=== PATIENT | female | born 1945 | race Caucasian/White ===

== ENCOUNTER → 2020-09-02 10:13 | Outpatient (BNVA) | payer MEDICARE, OTHER, SELFPAY | PROVIDERS: PCP Internal Medicine; Visit Provider Urology | DX: R33.9 Retention of urine, unspecified (principal) | CPT/HCPCS: Q3014 ==

== ENCOUNTER → 2021-09-06 09:52 | Outpatient (BNVA) | payer MEDICARE, OTHER, SELFPAY | PROVIDERS: PCP Internal Medicine; Visit Provider Urology | DX: R33.9 Retention of urine, unspecified (principal); N39.0 Urinary tract infection, site not specified | CPT/HCPCS: 51798; 99212 ==

== ENCOUNTER → 2022-09-28 11:13 | Outpatient (BNVA) | payer MEDICARE, OTHER, SELFPAY | PROVIDERS: PCP Internal Medicine; Visit Provider Urology | DX: N39.0 Urinary tract infection, site not specified (principal); R33.9 Retention of urine, unspecified | CPT/HCPCS: 51798; 99212 ==

== ENCOUNTER 2023-12-24 13:53 | Outpatient (AMB) | payer MEDICARE, OTHER, SELFPAY ==
--- NOTE | 2023-12-24 14:02 | MHC.OFFVIS ---
Intake Intake Visit Reasons: 1Y PVR/UTI Follow Up(Confirmed) Intake Note: Patient is Present for Follow Up Urology Medication: Estradiol, Tamsulosin Antibiotic Allergies:none Blood Thinners: None PVR:0 Allergies iodine Allergy (Intermediate, Verified 12/24/23 14:03) rash shellfish Allergy (Severe, Uncoded 12/24/23 14:03) Anaphylaxis animals Allergy (Intermediate, Uncoded 12/24/23 14:03) hives dust Allergy (Intermediate, Uncoded 12/24/23 14:03) hives mold Allergy (Intermediate, Uncoded 12/24/23 14:03) rash trees Allergy (Intermediate, Uncoded 12/24/23 14:03) hives HPI HPI Comments History of Present Illness Details Ena is a pleasant female. She is a patient of Dr. Card. She is for the following urologic conditions - recurrent UTI Yearly follow-up Continue good response to combination estradiol and tamsulosin Continue good response from tamsulosin Urinary Tract Infection: They present for followup evaluation - PVR low. Would like to stay on Flomax.. Severity of the symptom(s) that is mild. Gynecologic history: , 2, Para, 2 prolonged. Therapy has included Alpha-foster. Recent labs included 02/15 , a urinalysis, showing no infection, normal. Recent testing included an ultrasound 07/15 - no abnormalities - high PVR 235cc 02/13 , a PVR 8cc 02/14 PVR 0cc 02/15 PVR 0cc. Relevant medical history diabetes No constipation No incomplete bladder emptying Yes renal stones No genitourinary surgery Yes association of infections with intercourse No history of vesicoureteral reflux No Therapeutic plan will include Continued to use of alpha blockers. [facility] Social History Alcohol intake: current Alcohol type: wine Patient Tobacco Use Status: Never used Tobacco Review of Systems Const Denies chills and Denies fever(s) Card Reports no additional complaints and Denies syncope Resp Denies cough GI Denies abdominal pain and Denies heartburn Reports as per HPI and Denies change in libido Neuro Denies syncope Psych Denies change in libido Endo Denies change in libido Physical Exam Const General: cooperative, healthy appearing, comfortable and no acute distress Orientation/consciousness: patient oriented x3 HEENT Face and sinus: Yes normal facial exam Mouth: moist mucous membranes Neck Neck: Yes normal visual inspection, Yes full ROM and Yes trachea midline Chest Chest palpation & inspection: normal inspection of the chest Resp Effort & Inspection: normal respiratory effort, able to speak in complete sentences and no respiratory distress GI Inspection: Yes normal to inspection Back/Spine/Pelvis Cervical Spine: normal cervical lordosis Thoracic/Lumbar Spine: thoracic and lumbar spine normal to inspection Skin General skin exam: no rashes or lesions noted Neuro General: patient oriented x3, gait normal, tone normal and moves all extremities Extrem General: Yes normal to inspection and Yes capillary refill normal Office Procedures Post Void Residual Post Residual Void Post Void Residual (PVR): 0 [id number] Void Residual by ultrasound Results AMB Urinalysis, Automated UA Leukoctes 0 Aida/uL Last Edit by Dominique Robles [facility] on 12/24/23 14:15 UA Nitrite Negative Last Edit by Dominique Robles [facility] on 12/24/23 14:15 UA Urobilinogen 0.2 mg/dL Last Edit by Dominique Robles [facility] on 12/24/23 14:15 UA Protein 0 mg/dL Last Edit by Dominique Robles [facility] on 12/24/23 14:15 UA pH 6.5 Last Edit by Dominique Robles [facility] on 12/24/23 14:15 UA Blood 0 Hussein/uL Last Edit by Dominique Robles [facility] on 12/24/23 14:15 UA Specific Hoven 1.010 Last Edit by Dominique Robles [facility] on 12/24/23 14:15 UA Ketone Negative Last Edit by Dominique Robles [facility] on 12/24/23 14:15 UA Bilirubin 0 mg/dL Last Edit by Dominique Robles [facility] on 12/24/23 14:15 UA Glucose 0 mg/dL Last Edit by Dominique Robles [facility] on 12/24/23 14:15 Results Reviewed Results Reviewed: Laboratory Last Values Urine pH (Auto) 6.5 12/24/23 14:04 Specific Hoven (Auto) 1.010 12/24/23 14:04 Urine Protein (Auto) 0 mg/dL 12/24/23 14:04 Glucose (UA)(Auto) 0 mg/dL 12/24/23 14:04 Urine Ketones (Auto) Negative 12/24/23 14:04 Urine Blood (Auto) 0 Hussein/uL 12/24/23 14:04 Urine Nitrite (Auto) Negative 12/24/23 14:04 Urine Bilirubin (Auto) 0 mg/dL 12/24/23 14:04 Urine Urobilinogen (Auto) 0.2 mg/dL 12/24/23 14:04 Leukocyte Esterase (Auto) 0 Aida/uL 12/24/23 14:04 Assessment & Plan Assessment & Plan (1) Recurrent UTI: Code(s): N39.0 - Urinary tract infection, site not specified (2) Urinary retention with incomplete bladder emptying: Code(s): R33.9 - Retention of urine, unspecified Plan Twelve month follow-up Orders: Orders AMB Post Void Residual by ultrasound 12/24/23 R33.9 - Retention of urine, unspecified AMB Urinalysis Automated 12/24/23 Z13.9 - Encounter for screening, unspecified Patient Instructions: Imaging studies, laboratory and physical exam results were discussed and reviewed in detail. No major barriers to patient understanding were identified. An opportunity to ask questions regarding the treatment plan was provided. All questions were answered. The patient expressed understanding and agreement with the above treatment plan. The patient is aware they should contact our office by phone for worsening of their current condition or the appearance of new urologic symptoms. Compliance is encouraged with any medications and followup testing that is ordered. It is a privilege to participate in the urologic care of your patient. If you have any questions or concerns regarding treatment for the above conditions, or other urologic issues, please do not hesitate to contact me. The office telephone contact is [phone]. This note is constructed using voice recognition software. While every effort has been made to ensure accuracy news production supervisor errors may have been included. Yours sincerely, Dr Srikanth Oakes MD, [facility] - Urology Providers of Expert, Compassionate Care for the Genitourinary System Coding Level of Care Code Est Pt Level 4 (95613) Diagnoses Recurrent UTI N39.0 Urinary retention with incomplete bladder emptying R33.9 CPT Codes Post Residual Void - PVR CPT Code: 82646-Wgkd Void Residual by ultrasound ([id number])
== END 2023-12-24 14:56 | disposition home or self-care (01) ==
PROVIDERS: Visit Provider Urology
DX: N39.0 Urinary tract infection, site not specified (principal); R33.9 Retention of urine, unspecified
CPT/HCPCS: 99213

== ENCOUNTER → 2023-12-24 13:53 | Outpatient (BNVA) | payer MEDICARE, OTHER, SELFPAY | PROVIDERS: Visit Provider Urology | DX: N39.0 Urinary tract infection, site not specified (principal); R33.9 Retention of urine, unspecified; Z79.899 Other long term (current) drug therapy | CPT/HCPCS: 51798; 81003; 99212 ==

== ENCOUNTER 2024-05-14 10:50 | Outpatient (REF) | payer MEDICARE, OTHER, SELFPAY ==
[2024-05-14 11:58] LABS: Appearance Urine Clear; Color Urine Yellow; Glucose Urine UA Negative (Negative); Leukocyte Esterase Urine Trace (Negative); Nitrite Urine Negative (Negative); PH 7.5 (5.0-9.0); UMIC TRIGGER UA YES; Urine Blood Negative (Negative); Urine Ketones Negative (Negative); Urine Protein Negative (Neg-Trace)
[2024-05-14 12:01] LABS: Bacteria Urine None Seen (None Seen); Hyaline Casts Urine 0-2 /LPF (0-2); RBC Urine 0-2 /HPF (0-2); WBC Urine 0-5 /HPF (0-5)
== END 2024-05-14 10:51 | disposition home or self-care (01) ==
LOC: HO.LAB 10:50
PROVIDERS: PCP Internal Medicine; Visit Provider Urology
DX: N39.0 Urinary tract infection, site not specified (principal); R33.9 Retention of urine, unspecified
CPT/HCPCS: 81001; 87086

== ENCOUNTER 2024-12-22 14:00 | Outpatient (AMB) | payer MEDICARE, OTHER, SELFPAY ==
--- NOTE | 2024-12-22 14:08 | MHC.OFFVIS ---
Intake Visit Reasons: 1 year f/u Intake Note: Patient is Present for 1Y Follow Up Urology Medication: Estradiol, Tamsulosin Antibiotic Allergies:none Blood Thinners: None PVR:0ML'S TODAY'S PVR: 0ML'S Bottom Scrubber Required: No Allergies iodine Allergy (Intermediate, Verified 12/22/24 14:09) rash shellfish Allergy (Severe, Uncoded 12/22/24 14:09) Anaphylaxis animals Allergy (Intermediate, Uncoded 12/22/24 14:09) hives dust Allergy (Intermediate, Uncoded 12/22/24 14:09) hives mold Allergy (Intermediate, Uncoded 12/22/24 14:09) rash trees Allergy (Intermediate, Uncoded 12/22/24 14:09) hives HPI Comments Details: Ena is a pleasant female. She is a patient of Dr. Card. She is for the following urologic conditions - recurrent UTI Yearly follow-up Remains on estradiol versus Estrace ring No longer on tamsulosin PVR stable Twelve month follow-up Urinary Tract Infection: They present for followup evaluation - PVR low Severity of the symptom(s) that is mild. Gynecologic history: , 2, Para, 2 prolonged. Therapy has included Alpha-foster. Recent labs included 02/15 , a urinalysis, showing no infection, normal. Recent testing included an ultrasound 07/15 - no abnormalities - high PVR 235cc 02/13 , a PVR 8cc 02/14 PVR 0cc 02/15 PVR 0cc. Relevant medical history diabetes No constipation No incomplete bladder emptying Yes renal stones No genitourinary surgery Yes association of infections with intercourse No history of vesicoureteral reflux No Therapeutic plan will include Continued to use of alpha blockers. [facility] Social History Alcohol intake: current Alcohol type: wine Patient Tobacco Use Status: Never used Tobacco Review of Systems Const Denies chills and Denies fever(s) Card Reports no additional complaints and Denies syncope Resp Denies cough GI Denies abdominal pain and Denies heartburn Reports as per HPI and Denies change in libido Neuro Denies syncope Psych Denies change in libido Endo Denies change in libido Physical Exam Const General: cooperative, healthy appearing, comfortable and no acute distress Orientation/consciousness: patient oriented x3 HEENT Face and sinus: Yes normal facial exam Mouth: moist mucous membranes Neck Neck: Yes normal visual inspection, Yes full ROM and Yes trachea midline Chest Chest palpation & inspection: normal inspection of the chest Resp Effort & Inspection: normal respiratory effort, able to speak in complete sentences and no respiratory distress GI Inspection: Yes normal to inspection Back/Spine/Pelvis Cervical Spine: normal cervical lordosis Thoracic/Lumbar Spine: thoracic and lumbar spine normal to inspection Skin General skin exam: no rashes or lesions noted Neuro General: patient oriented x3, gait normal, tone normal and moves all extremities Extrem General: Yes normal to inspection and Yes capillary refill normal Office Procedures Post Void Residual Post Residual Void Post Void Residual (PVR): 0 [id number] Void Residual by ultrasound Results AMB Urinalysis, Automated UA Leukoctes 0 Aida/uL Last Edit by DESTINEY Vick on 12/22/24 14:24 UA Nitrite Negative Last Edit by DESTINEY Vick on 12/22/24 14:24 UA Urobilinogen 3.5 mg/dL Last Edit by DESTINEY Vick on 12/22/24 14:24 UA Protein 0 mg/dL Last Edit by DESTINEY Vick on 12/22/24 14:24 UA pH 6.5 Last Edit by DESTINEY Vick on 12/22/24 14:24 UA Blood 0 Hussein/uL Last Edit by DESTINEY Vick on 12/22/24 14:24 UA Specific Sandy 1.010 Last Edit by DESTINEY Vick on 12/22/24 14:24 UA Ketone Negative Last Edit by DESTINEY Vick on 12/22/24 14:24 UA Bilirubin 0 mg/dL Last Edit by DESTINEY Vick on 12/22/24 14:24 UA Glucose 0 mg/dL Last Edit by Booker Morales CCM on 12/22/24 14:24 Results Reviewed Results Reviewed: Laboratory Last Values Urine pH (Auto) 6.5 12/22/24 14:23 Specific Sandy (Auto) 1.010 12/22/24 14:23 Urine Protein (Auto) 0 mg/dL 12/22/24 14:23 Glucose (UA)(Auto) 0 mg/dL 12/22/24 14:23 Urine Ketones (Auto) Negative 12/22/24 14:23 Urine Blood (Auto) 0 Hussein/uL 12/22/24 14:23 Urine Nitrite (Auto) Negative 12/22/24 14:23 Urine Bilirubin (Auto) 0 mg/dL 12/22/24 14:23 Urine Urobilinogen (Auto) 3.5 mg/dL 12/22/24 14:23 Leukocyte Esterase (Auto) 0 Aida/uL 12/22/24 14:23 Assessment & Plan Assessment & Plan (1) Urinary retention with incomplete bladder emptying: Code(s): R33.9 - Retention of urine, unspecified Category: Medical (2) Recurrent UTI: Code(s): N39.0 - Urinary tract infection, site not specified Category: Medical Plan One year follow-up Orders: Orders AMB Urinalysis Automated Today Z13.9 - Encounter for screening, unspecified Patient Instructions: This note is constructed using voice recognition software. While every effort has been made to ensure accuracy database admin errors may have been included. Imaging studies, laboratory and physical exam results were discussed and reviewed in detail. No major barriers to patient understanding were identified. An opportunity to ask questions regarding the treatment plan was provided. All questions were answered. The patient expressed understanding and agreement with the above treatment plan. The patient is aware they should contact our office by phone for worsening of their current condition or the appearance of new urologic symptoms. Compliance is encouraged with any medications and followup testing that is ordered. It is a privilege to participate in the urologic care of your patient. If you have any questions or concerns regarding treatment for the above conditions, or other urologic issues, please do not hesitate to contact me. The office telephone contact is [phone]. Sincerely, Dr Srikanth Oakes MD, [facility] - Urology Compassionate Specialist Care for the Genitourinary System Coding Level of Care Code Est Pt Level 4 (34459) Complex EM visit Add On G2211 Diagnoses Urinary retention with incomplete bladder emptying R33.9 Recurrent UTI N39.0 CPT Codes Post Residual Void - PVR CPT Code: 45221-Rkto Void Residual by ultrasound ([id number])
--- OUTSIDE RECORDS SUMMARY | 2024-12-22 17:28 | XMS_ITS | Patient Health Record ---
Author Organization [facility] Address [address] [place] [address] Care Team Providers Care Floor Associate Name Role Phone JENNIFER BUSTOS Primary Care Provider Mita Banuelos [phone] Allergies Allergen (clinical drug ingredient) Drug/Non Drug Allergy documented on EMR Reaction Allergy Type Onset Date Status Shellfish (FN) Shellfish-derived Products Unknown Drug Allergy Active Results Component Value Reference Range Notes Urinalysis Reviewed date:08/14/2024 11:52:03 AM Interpretation: Performing Lab: Notes/Report: NITRITE NEG PH 5.0 PROTEIN TR S.G 1.020 WBC POS GLUCOSE NEG KETONES NEG UROBILINOGEN NEG BILIRUBIN NEG BLOOD NEG Urinalysis, Complete-[id number] Reviewed date:08/17/2024 08:03:08 AM Interpretation: Performing Lab:[facility], [address] [place] [address], Phone - [phone], Director - Ramila Notes/Report: Clinical Information:SRC: URINE Clinical Information:SRC: URINE Specific [place] 1.015 1.005-1.030 pH 6.5 5.0-7.5 Urine-Color Yellow Yellow Appearance Clear Clear WBC Esterase Negative Negative Protein Negative Negative/Trace Glucose Negative Negative Ketones Negative Negative Occult Blood Negative Negative Bilirubin Negative Negative Urobilinogen,Semi-Qn 0.2 0.2-1.0 mg/dL Nitrite, Urine Negative Negative Microscopic Examination Micr oscopic follows if indicated. Microscopic Examination See below: Micr oscopic was indicated and was performed. WBC 0-5 0 - 5 /hpf RBC None seen 0 - 2 /hpf Epithelial Cells (non renal) >10 0 - 10 /hpf Casts None seen None seen /lpf Crystals Present N/A Crystal Type Calcium Oxalate N/A Bacteria None seen None seen/Few Urine Culture, Routine-[id number] Reviewed date:08/17/2024 08:03:02 AM Interpretation: Performing Lab:[facility], [address], [place], Phone - [phone], Director - Ramila Notes/Report: Clinical Information:SRC: URINE Clinical Information:SRC: URINE Urine Culture, Routine Final report Result 1 Mixed urogenital jennifer 10,000-25,000 colony forming units per mL PDF Report Reviewed date:08/17/2024 07:56:16 AM Interpretation: Performing Lab:[facility] [place], [address] [facility], [place], Phone - [phone], Director - Ramila Notes/Report: Clinical Information:SRC: URINE Reason For Referral No Information Medications Medication SIG (Take, Route, Frequency, Duration) Notes Start Date End Date Status Terconazole 3 0.8 % 1 applicatorful at bedtime Vaginal Once a day for 3 day(s) 08/01/2020 Not-Taking Terazol 3 0.8 % 1 application at bed time Vaginal Once a day for 3 day(s) 10/04/2020 Not-Taking Terazol 7 0.4 % 1 applicatorful at bedtime Vaginal Once a night x 7 nights for 7 day(s) 07/26/2020 Not-Taking MetroGel-Vaginal 0.75 % 1 application at bedtime Vaginal ONCE A NIGHT for 5 day(s) 10/09/2022 Not-Taking MetroGel-Vaginal 0.75 % 1 application at bedtime Vaginal Once a day for 5 day(s) 10/04/2020 Not-Taking Yuvafem 10 MCG INSERT 1 TABLET VAGINALLY THREE X A WEEK for 90 Active Estradiol Vaginal Cream 0.01% 1 Gram to the affected area VULVA Twice a week for 90 days 08/14/2024 Active Flomax Active Lidocaine 5 % 1 application to affected area as needed Externally Three times a day as needed for 10 days 11/11/2014 Not-Taking Multi Paco Minerals - as directed Orally Active metroNIDAZOLE 0.75 % 1 applicatorful at bedtime Vaginal ONCE A NIGHT for 5 days 12/03/2024 Active Multivitamins 1 ORAL daily for -3 04/16/2012 Active Valtrex 1 GM 1 tablet Orally TWIC E DAILY for 10 day(s) 11/11/2014 Not-Taking Vitamin D 1000 UNIT 1 tablet Orally Once a day Active Lotrisone 1-0.05 % 1 application to affected area Externally Twice a day for 14 days 11/05/2014 Not-Jonah velasquez Yuvafem 10 MCG 1 tablet Vaginal THR ICE A WEEK for 90 days 12/03/2024 Active Bioflavonoids ORAL daily for -3 04/23/2013 Active Social History Tobacco Use: Social History Observation Description Date Details (start date - stop date) Former Smoker NA - NA Sexual History Question Answer Notes Had sex in the past 12 months (vaginal, oral, or anal)? No AUDIT-C (Standard) Question Answer Notes Did you have a drink containing alcohol in the p ast year? No Points 0 Interpretation Negative Tobacco Control (Standard) Question Answer Notes Tobacco use: Former smoker How long has it been since you last smoked? 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 (406506763) Prolapse of vaginal perry without mention of uterine prolapse (618.0) Active confirmed Problem Midline cystocele (550442369) Cystocele without mention of uterine prolapse, midline (618.01) Active confirmed Problem Herniation of rectum into vagina (147117271) Rectocele without mention of uterine prolapse (618.04) Active confirmed Problem Menopausal symptom (13553346) Symptomatic menopausal or female climacteric states (627.2) Active confirmed Problem Postmenopausal atrophic vaginitis (93886219) Postmenopausal atrophic vaginitis (627.3) Active confirmed Problem Disorder of bone and articular cartilage (disorder) (946111336) Disorder of bone and cartilage, unspecified (733.90) Active confirmed Problem Postmenopausal atrophic vaginitis (58886215) Postmenopausal atrophic vaginitis (N95.2) Active confirmed Problem Constipation by outlet obstruction (64871481) 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) Active confirmed Problem 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) (0644728753241323 0) Other benign mammary dysplasias of left breast (N60.82) Active confirmed Problem Benign mammary dysplasia (28412036) Other benign mammary dysplasias of unspecified breast (N60.89) Active confirmed Problem Atrophy of vulva (536214121) Atrophy of vulva (N90.5) Active confirmed Problem Abnormal findings on diagnostic imaging of breast (292186244) Other abnormal and inconclusive findings on diagnostic imaging of breast (R92.8) Active confirmed Problem History of neoplasm (390166775) Personal history of other benign neoplasm (Z86.018) Active confirmed Problem Gynecological examination normal (557274303462062) Routine gynecological examination (V72.31) Active confirmed Problem Screening for malignant neoplasm of colon (695378882) Special screening for malignant neoplasms, colon (V76.51) Active confirmed Major Vital Signs Temperature 2 degrees Fahrenheit 12/03/2024 Blood pressure diastolic 68 mm Hg 12/03/2024 Height 61.5 in 12/03/2024 Blood pressure systolic 114 mm Hg 12/03/2024 Weight 134 lbs 12/03/2024 BMI 24.91 kg/m2 12/03/2024 Encounters Encounter Location Date [facility] [address] [address] 08/14/2024 Mita Cote Frequency of micturition R35.0 and Atrophy of vulva N90.5 [address] [address] [address] 12/03/2024 Mita Cote Encounter for gynecological examination (general) (routine) without abnormal findings Z01.419 ; Encounter for screening mammogram for malignant neoplasm of breast Z12.31 ; Other specified disorders of bone density and structure, multiple sites M85.89 ; Outlet dysfunction constipation K59.02 ; Postmenopausal atrophic vaginitis N95.2 ; Acute vaginitis N76.0 ; Other benign mammary dysplasias of unspecified breast N60.89 and Dense breasts, unspecified R92.30 [address] [address] [address] 08/13/2024 Mita Cote [address] [address] 12/17/2024 Mita Cote Assessments Encounter Date Diagnosis (ICD Code) Assessment Notes Treatment Notes Treatment Clinical Notes Section Notes 08/14/2024 Frequency of micturition (ICD-10 - R35.0) OFFICIAL UA AND URINE C/S WERE ORDERED. 12/03/2024 Encounter for gynecological examination (general) (routine) without abnormal findings (ICD-10 - Z01.419) NO MORE PAP TESTS. 12/03/2024 Encounter for screening mammogram for malignant neoplasm of breast (ICD-10 - Z12.31) REGULAR MAMMOGRAMS AND SBE'S WERE RECOMMENDED. 08/14/2024 Atrophy of vulva (ICD-10 - N90.5) DISCUSSED FINDINGS AND DESQUAMATION NOTED. SHE HAS BURNING SENSATION ALONG THIS AREA WHEN URINE PASSES DUE TO ACIDITY OF URINE. APPLY VASELINE ALONG THIS AREA TO PROTECT IT. CONTINUE EMUAID. IF NOT BETTER, APPLY ESTRADIOL CREAM ALONG THE VULVA TWICE WEEKLY. 12/03/2024 Other specified disorders of bone density and structure, multiple sites (ICD-10 - M85.89) DISCUSSED HER LAST BMD AND OSTEOPENIA AND ITS IMPACT ON HER HEALTH. ADEQUATE CALCIUM AND VIT D. WEIGHT BEARING EXERCISES. REPEAT BMD IN 2025. 12/03/2024 Outlet dysfunction constipation (ICD-10 - K59.02) DISCUSSED DISCONTINUING MAGNESIUM FOLLOWED BY INABILITY TO EMPTY BOWELS WELL. RESTART MAGNESIUM SUPPLEMENTS. IF SHE CONTINUES TO HAVE THIS ISSUE, CALL BACK AND WILL REFER TO COLORECTAL SURGEONS FOR FURTHER EVALUATION. 12/03/2024 Postmenopausal atrophic vaginitis (ICD-10 - N95.2) CONTINUE YUVAFEM THRICE A WEEK. 12/03/2024 Acute vaginitis (ICD-10 - N76.0) DISCUSSED FINDINGS, DX AND TX OPTIONS. DISCUSSED BV RX FOR METROGEL AND INSTRUCTIONS WERE GIVEN. RECURRENT NATURE OF THE CONDITION WAS EMPHASIZED. 12/03/2024 Other benign mammary dysplasias of unspecified breast (ICD-10 - N60.89) DISCUSSED HS OF ADH AND ITS IMPLICATIONS. 12/03/2024 Dense breasts, unspecified (ICD-10 - R92.30) DISCUSSED DENSE BREASTS ON MAMMOGRAM AND ITS IMPLICATIONS. 3D MAMMOGRAMS WERE RECOMMENDED. Plan Of Treatment Pending Test Test Name Order Date HSV 10/01 PCR 11/11/2014 MAMMOGRAM, SCREENING 10/05/2021 MAMMOGRAM, SCREENING 10/09/2022 MAMMOGRAM, SCREENING 12/03/2023 MAMMOGRAM, SCREENING 12/03/2024 MAMMOGRAM, SCREENING 06/14/2015 Urine Culture and Sensitivity 11/05/2014 Urinalysis 09/11/2018 COMPLETE URINALYSIS 02/14/2023 URINE CULTURE 02/14/2023 BONE DENSITY 10/09/2022 BONE DENSITY 12/03/2024 BONE DENSITY 10/04/2020 MM Digital Mammo Screening 10/05/2021 MM Digital Mammo Screening 12/03/2023 MM Digital Mammo Screening 10/09/2022 MM Digital Mammo Screening 12/03/2024 Next Appt Details Provider Name:Mita quintero, 12/29/2024 10:50:00 AM, [address], [address], [place], [address], Provider Name:Mita quintero, 12/09/2025 10:00:00 AM, [address], [address], [place], [address], Insurance Providers Payer Name Payer Address Payer Phone Subscriber Number Group Number Insured Name Patient Relationship to Insured Coverage Start Date Coverage End Date MEDICARE [address] [facility] [place] [id number] [phone] [id number] SONYA MAYERS Self - patient is the insured [facility] [address] [place] [address] [id number] SONYA MAYERS Self - patient is the insured Medical (General) History Medical History History ICD Code Postmenopausal atrophic vaginitis N95.2 Other benign mammary dysplasias of left breast N60.82 Disorder of bone density and structure, unspecified M85.9 Menopausal and female climacteric states N95.1 Rectocele N81.6 Cystocele, unspecified N81.10 Prolapse of vaginal perry without mentio n of uterine prolapse 618.0 Hormone replacement therapy Z79.890 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 Atrophy of vulva N90.5 Other benign mammary dysplasias of left breast N60.82 Other abnormal and inconclusive findings on diagnostic imaging of breast R92.8 Personal history of other benign neoplas m Z86.018 Nocturia R35.1 Inconclusive mammogram R92.2 Mammographic heterogeneous density, bila teral breasts R92.333 Dense breasts, unspecified R92.30 Other specified disorders of bone densit y and structure, multiple sites M85.89 Surgical History Surgery Date(Month/Year) Tonsillectomy Appendectomy Hysterectomy Ltl Lumpectomy Bladder Suspension Procedure Colonoscopy Bilateral Tubal Ligation Right Breast Biopsy 09/16/19 Left Breast Biopsy 08/14/17 Hospitalization History Reason Date(Month/Year) See Surgical Hx 2 Vaginal Deliveries
--- OUTSIDE RECORDS SUMMARY | 2024-12-22 17:28 | XMS_ITS ---
Author Organization [facility] Address [address] [place] [address] Care Team Providers Care Patient Access Coordinator Name Role Phone JENNIFER BUSTOS Primary Care Provider Mita Banuelos Unavailable [phone] REASON FOR VISIT DOESN'T THINK SHE GOT A BREAST EXAM AT HER PE Encounters Encounter Location Date Provider Diagnosis [facility] [address] [place] [address] 12/17/2024 Mita Cote Plan Of Treatment Next Appt Details Provider Name:Mita quintero, 12/29/2024 10:50:00 AM, [address], [address], [place], [address], Provider Name:Mita quintero, 12/09/2025 10:00:00 AM, [address], [address], [place], [address], Progress Notes * SONYA MAYERS RDOB: (79 yo F)Acc No.[id number]:12/17/2024 Patient:?SONYA MAYERS :1945???Age:79 Y???Sex:Female Address:[address] [place] [address], [id number] * true * Date:? Generated for Printi ng/Faxing/eTransmitting on:?12/22/2024 05:28 PM EDT
--- OUTSIDE RECORDS SUMMARY | 2024-12-22 17:28 | XMS_ITS | Clinical Summary ---
Author Organization [facility] Address [address] [place] [address] Phone Care Team Providers Care Chemical Blender Name Role Phone Amado Card MD Primary Care Provider [phone] Social History Tobacco Use Types Packs/Day Years Used Date Smoking Tobacco: Never Assessed Comments Unknown Sex and Gender Information Value Date Recorded Sex Assigned at Not on file Legal Sex Female 8:20 PM EST Gender Identity Not on file Sexual Orientation Not on file Plan of Treatment Upcoming Encounters Date Type Department Care Team (Late st Contact Info) Description 02/02/2025 3:10 PM EDT Consult Gastroenterology - [address] [phone] Bari Champion MD [address] [place] [phone] Health Maintenance Due Date Last Done Comments DTaP,Tdap,and Td Vaccines (1 - Tdap) 1966 Pneumococcal Vaccine: 50+ Ye ars (1 of 1 - PCV) 1997 Zoster Vaccines (1 of 2) 1997 RSV Immunization Patients 60 + Years Old (1 - 1-dose 75+ series) 2022 Depression Screening 10/24/2023 Falls Risk Assessment 10/24/2023 Hepatitis C Screening 10/24/2023 Medicare Annual Wellness Visit 10/24/2023 Osteoporosis Screening (Bone Density Screening) 10/24/2023 Social Influencers of Health Screening 10/24/2023 COVID-19 Vaccine ( - 2023-2 5 season) 2024 Influenza Vaccine (#1) 2024 HIB Vaccines Aged Out No longer eligi ble based on patient's age to complete this topic HPV Vaccines Aged Out No longer eligi ble based on patient's age to complete this topic Hepatitis A Vaccines Aged Out No long er eligible based on patient's age to complete this topic Hepatitis B Vaccines Aged Out No long er eligible based on patient's age to complete this topic IPV Vaccines Aged Out No longer eligi ble based on patient's age to complete this topic MMR Vaccines Aged Out No longer eligi ble based on patient's age to complete this topic Meningococcal ACWY Vaccine Aged Out N o longer eligible based on patient's age to complete this topic Meningococcal B Vacine Aged Out No lo nger eligible based on patient's age to complete this topic RSV Immunization Patients Un dale 20 months Aged Out No longer eligible b ased on patient's age to complete this topic Varicella Vaccines Aged Out No longer eligible based on patient's age to complete this topic Insurance MEDICARE Care Teams Chemical Blender Relationship Specialty Start Date End Date Amado Card MD [address] [place] [address] PCP - General Internal Medicine 12/14/24
--- OUTSIDE RECORDS SUMMARY | 2024-12-22 17:29 | XMS_ITS ---
Author Organization [employer] [facility] Address [address] [place] [address] Care Team Providers Care Vulcanizer Name Role Phone JENNIFER BUSTOS Primary Care Provider Mita Banuelos [phone] Allergies Allergen (clinical drug ingredient) Drug/Non Drug Allergy documented on EMR Reaction Allergy Type Onset Date Status Shellfish (FN) Shellfish-derived Products Unknown Drug Allergy Active Results Component Value Reference Range Notes Urinalysis Reviewed date:08/14/2024 11:52:03 AM Interpretation: Performing Lab: Notes/Report: NITRITE NEG PH 5.0 PROTEIN TR S.G 1.020 WBC POS GLUCOSE NEG KETONES NEG UROBILINOGEN NEG BILIRUBIN NEG BLOOD NEG Urinalysis, Complete-[id number] Reviewed date:08/17/2024 08:03:08 AM Interpretation: Performing Lab:[facility], [address] [place] [address], Phone - [phone], Director - Ramila Notes/Report: Clinical Information:SRC: URINE Clinical Information:SRC: URINE Specific Walker 1.015 1.005-1.030 pH 6.5 5.0-7.5 Urine-Color Yellow [...] Bacteria None seen None seen/Few Urine Culture, Routine-[id number] Reviewed date:08/17/2024 08:03:02 AM Interpretation: Performing Lab:[facility] [place], [address], [place], Phone - [phone], Director - Ramila Notes/Report: Clinical Information:SRC: URINE Clinical Information:SRC: URINE Urine Culture, Routine Final report Result 1 Mixed urogenital jennifer 10,000-25,000 colony forming units per mL PDF Report Reviewed date:08/17/2024 07:56:16 AM Interpretation: Performing Lab:[facility], [address], [place], Phone - [phone], Director - Ramila Notes/Report: Clinical Information:SRC: URINE REASON FOR VISIT FREQUENCY AND VAGINAL DISCOMFORT Medications Medication SIG (Take, Route, Frequency, Duration) Notes Start Date End Date Status Flomax Active Estradiol Vaginal Cream 0.01% 1 Gram to the affected area VULVA Twice a week for 90 days 08/14/2024 Active Bioflavonoids ORAL daily for -3 04/23/2013 Active Vitamin D 1000 UNIT 1 tablet Orally Once a day Active Multivitamins 1 ORAL daily for -3 04/16/2012 Active Terazol 7 0.4 % 1 applicatorful at bedtime Vaginal Once a night x 7 nights for 7 day(s) 07/26/2020 Not-Taking Lidocaine 5 % 1 application to affected area as needed Externally Three times a day as needed for 10 days 11/11/2014 Not-Taking Valtrex 1 GM 1 tablet Orally TWIC E DAILY for 10 day(s) 11/11/2014 Not-Taking Terconazole 3 0.8 % 1 applicatorful at bedtime Vaginal Once a day for 3 day(s) 08/01/2020 Not-Taking Lotrisone 1-0.05 % 1 application to affected area Externally Twice a day for 14 days 11/05/2014 Not-Taki ng MetroGel-Vaginal 0.75 % 1 application at bedtime Vaginal Once a day for 5 day(s) 10/04/2020 Not-Taking MetroGel-Vaginal 0.75 % 1 application at bedtime Vaginal ONCE A NIGHT for 5 day(s) 10/09/2022 Not-Taking Terazol 3 0.8 % 1 application at bed time Vaginal Once a day for 3 day(s) 10/04/2020 Not-Taking Yuvafem 10 MCG INSERT 1 TABLET VAGINALLY THREE X A WEEK for 90 Active Multi Paco Minerals - as directed Orally Active Social History Tobacco Use: Social History Observation Description Date Details (start date - stop date) Former Smoker NA - NA Sexual History Question Answer Notes Had sex in the past 12 months (vaginal, oral, or anal)? No Tobacco Control (Standard) Question Answer Notes Tobacco use: Former smoker How long has it been since you last smoked? Pedro ter than 10 years Vital Signs Height 61.5 in 08/14/2024 Weight 140 lbs 08/14/2024 BMI 26.02 kg/m2 08/14/2024 Blood pressure systolic 120 mm Hg 08/14/20 Blood pressure diastolic 74 mm Hg 024 Temperature 98.0 degrees Fahrenheit 08/14/20 24 Encounters Encounter Location Date Provider Diagnosis [address] [address] 08/14/2024 Mita Cote Frequency of micturition R35.0 and Atrophy of vulva N90.5 Assessments Encounter Date Diagnosis (ICD Code) Assessment Notes Treatment Notes Treatment Clinical Notes Section Notes 08/14/2024 Frequency of micturition (ICD-10 - R35.0) OFFICIAL UA AND URINE C/S WERE ORDERED. 08/14/2024 Atrophy of vulva (ICD-10 - N90.5) DISCUSSED FINDINGS AND DESQUAMATION NOTED. SHE HAS BURNING SENSATION ALONG THIS AREA WHEN URINE PASSES DUE TO ACIDITY OF URINE. APPLY VASELINE ALONG THIS AREA TO PROTECT IT. CONTINUE EMUAID. IF NOT BETTER, APPLY ESTRADIOL CREAM ALONG THE VULVA TWICE WEEKLY. Plan Of Treatment Medication Medication Name Sig Start Date Stop Date Notes Estradiol Vaginal Cream 0.01% 1 Gram to the affected area VULVA Twice a week for 90 days 08/14/2024 Treatment Notes Assessment Notes Frequency of micturition OFFICIAL UA AND URINE C/S WERE ORDERED. Atrophy of vulva DISCUSSED FINDINGS AND DESQUAMATION NOTED. SHE HAS BURNING SENSATION ALONG THIS AREA WHEN URINE PASSES DUE TO ACIDITY OF URINE. APPLY VASELINE ALONG THIS AREA TO PROTECT IT. CONTINUE EMUAID. IF NOT BETTER, APPLY ESTRADIOL CREAM ALONG THE VULVA TWICE WEEKLY. Next Appt Details Follow Up: prn, Reason: Provider Name:Mita quintero, 12/29/2024 10:50:00 AM, [address], [address], [place], [address], Provider Name:Mita quintero, 12/09/2025 10:00:00 AM, [address], [address], [place], [address], Progress Notes * SONAY MAYERS RDOB: [birth year] (79 yo F)Acc No.[id number]:08/14/2024 PROGRESS NOTES Patient:?SONYA MAYERS Appointment Provider:?Mita quintero M.D. :1945???Age:79 Y???Sex:Female D ate:08/14/2024 Address:[address] [place], [place] [id number] Pcp:JENNIFER BUSTOS Subjective: * Chief Complaints: * ???FREQUENCY AND VAGINAL DIS COMFORT * HPI: ???New/Follow-up Patient Consult:? SONYA C/O BURNING SENSATION ALONG THE VULVA WHEN SHE URINATES AND URINE PASSES THROUGH VULVA.? SHE HAS ALSO NOTED URGENCY NO DYSURIA..? SHE HAS BEEN USING EMUAID ALONG THE VULVA.? SHE USES YUVAFEM THRICE WEEKLY AND VAGINA IS NOT ATROPHIC. S/P TAHBSO FOR BLEEDING FIBROIDS IN .? SHE IS NOT SEXUALLY ACTIVE.? SHE IS A . * ROS:?general:?no?chest pain.?no?palpitations.?no?headache.?no?cough.?no?shortness of breath.?no?fever.?no?unexplained weight loss.?no?nausea/vomiting.?no?change in bowel movements.?no blood in stool.?no?genitourinary complaints.?no?skin complaints.? * Medical History:? * Director Executive Communications History:?/ Para?2/2.?Sexual activity?not currently sexually active.?Last Pap Smear:?04/23/13.?Mammogram:?10/07/23 50-75% density, 10/04/22 50-75% density, 11/30/20 50-75% density, 04/12/20 Unilat Right, 08/20/19 50-75% density, 08/07/18 normal < 50% density, , 01/29/18 Unilat Left 6 month follow up 50-75% density, 08/01/2017 Bilateratl Mammo with additional views and Bx Lt Breast - positive. 06/28/2015 , normal, < 50% density.?LMP and menses?Hyst, No menses.? Control:?bilateral tubal ligation.?Hysterectomy:?yes.?Colonoscopy?yes,05/2019, 05/2014.?Bone Density:?10/07/23, 11/30/20, 08/14/18.? * OB History:?Total pregnancies?2.?Total living children?2.?NVD?2.? * Surgical History:?Tonsillect josiah Appendectomy Hysterectomy Ltl Lumpectomy Bladder Suspension Procedure Colonoscopy Bilateral Tubal Ligation Right Breast Biopsy 09/16/19Left Breast Biopsy 08/14/17 * Hospitalization/Major Diagno stic Procedure:?2 Vaginal Deliveries See Surgical Hx * Family History:?Mother: dece ased, in her 70, diagnosed with Unspecified cerebral artery occlusion with cerebral infarction.?Father: 85 yrs, coronary artery disease.?Maternal uncle: colon cancer.?Maternal aunt: ovarian cancer.? * Social History:?Tobacco Use:?Tobacco Control (Standard)?Tobacco use:?Former smoker ?How long has it been since you last smoked??Greater than 10 years ???Sexual History:?Sexual History?Had sex in the past 12 months (vaginal, oral, or anal)??No ?Details of Sexual History?Are you sexually active??No ?Sexual Abuse?History:?none ???Drugs/Alcohol:?Drugs?Have you used drugs other than those for medical reasons in the past 12 months??No ?Caffeine?Intake:?none ???Miscellaneous:?Caffeine: , none. ?Children: yes, 2. ?Domestic violence: none. ?Home smoke detector use: yes. ?Housing: owns a home. ?Marital status: . ?Natural support system: yes. ?Occupation: Retired. ?Sexual abuse: none. ?Sexually active: no. ?Travel outside of the [place]: none in last six months. ?Verbal abuse: none. * Medications:?TakingBioflavon oids ORAL daily Multivitamins 30 1 ORAL daily Vitamin D 1000 UNIT Tablet 1 tablet Orally Once a day Flomax Multi Paco Minerals - Tablet as directed Orally Yuvafem 10 MCG Tablet INSERT 1 TABLET VAGINALLY THREE X A WEEK Taking Bioflavonoids ORAL daily Taking Multivitamins 30 1 ORAL daily Taking Vitamin D 1000 UNIT Tablet 1 tablet Orally Once a day Taking Flomax Taking Multi Paco Minerals - Tablet as directed Orally Taking Yuvafem 10 MCG Tablet INSERT 1 TABLET VAGINALLY THREE X A WEEK Qja-DkkfjiWktxpEih-Jvzxerg 0.75 % Gel 1 application at bedtime Vaginal ONCE A NIGHT MetroGel-Vaginal 0.75 % Gel 1 application at bedtime Vaginal Once a day Terazol 3 0.8 % Cream 1 application at bedtime Vaginal Once a day Terazol 7 0.4 % Cream 1 applicatorful at bedtime Vaginal Once a night x 7 nights Terconazole 3 0.8 % Cream 1 applicatorful at bedtime Vaginal Once a day Valtrex 1 GM Tablet 1 tablet Orally TWICE DAILY Lotrisone 1-0.05 % Cream 1 application to affected area Externally Twice a day Lidocaine 5 % Ointment 1 application to affected area as needed Externally Three times a day as needed Medication List reviewed and reconciled with the patientNot-Taking MetroGel-Vaginal 0.75 % Gel 1 application at bedtime Vaginal ONCE A NIGHT Not-Taking MetroGel-Vaginal 0.75 % Gel 1 application at bedtime Vaginal Once a day Not-Taking Terazol 3 0.8 % Cream 1 application at bedtime Vaginal Once a day Not-Taking Terazol 7 0.4 % Cream 1 applicatorful at bedtime Vaginal Once a night x 7 nights Not-Taking Terconazole 3 0.8 % Cream 1 applicatorful at bedtime Vaginal Once a day Not-Taking Valtrex 1 GM Tablet 1 tablet Orally TWICE DAILY Not-Taking Lotrisone 1-0.05 % Cream 1 application to affected area Externally Twice a day Not-Taking Lidocaine 5 % Ointment 1 application to affected area as needed Externally Three times a day as needed Medication List reviewed and reconciled with the patient * Allergies:?Shellfish-derived Products: Allergyno[Allergies Verified] Objective: * Vitals:?Ht: 61.5 in, Wt: 140 lbs, BMI:26.02Index, BP: 120/74 mm Hg, Temp: 98.0 F. * Examination: ???INTERACTIVE ART DIRECTOR exam: ?EXTERNAL GENITALIA:?DRY ATROPHIC VULVA WITH SLIGHT DESUQMATION ALONG BILATERAL INTROITAL OPENING.?VAGINA:?normal, no lesions.? Assessment: * Assessment: 1.?Frequency of micturition - R35.0???2.?Atrophy of vulva - N90.5??? Plan: * Treatment: ? Value Reference Range ?NITRITE NEG * ?PH 5.0 * ?PROTEIN TR * ?S.G 1.020 * ?WBC POS * ?GLUCOSE NEG * ?KETONES NEG * ?UROBILINOGEN NEG * ?BILIRUBIN NEG * ?BLOOD NEG Notes: OFFICIAL UA AND URINE C/S WERE ORDERED.??2.?Atrophy of vulva? Start Estradiol Vaginal Cream Cream, 0.01%, 1 Gram to the affected area, VULVA, Twice a week, 90 days, 42.5 Gram, Refills 4.?? Notes: DISCUSSED FINDINGS AND DESQUAMATION NOTED. SHE HAS BURNING SENSATION ALONG THIS AREA WHEN URINE PASSES DUE TO ACIDITY OF URINE. APPLY VASELINE ALONG THIS AREA TO PROTECT IT. CONTINUE EMUAID. IF NOT BETTER, APPLY ESTRADIOL CREAM ALONG THE VULVA TWICE WEEKLY.?? * Procedure Codes:? * Follow Up:?prn * Images: Billing Information: * Visit Code:? * Procedure Codes:? * Sign off status: Completed true * Appointment Provider:?Mita Cote M.D. Date:?08/14/2024 Generated for Reese velasquze/Darshan/Yulyitting on:?12/22/2024 05:28 PM EDT History and Physical Notes * HPI (History of Present Illness) Category Sub-Category Detail Notes Category Not es New/Follow-up Patient Consult SONYA C/O BURNING SENSATION ALONG THE VULVA WHEN SHE URINATES AND URINE PASSES THROUGH VULVA. SHE HAS ALSO NOTED URGENCY NO DYSURIA.. SHE HAS BEEN USING EMUAID ALONG THE VULVA. SHE USES YUVAFEM THRICE WEEKLY AND VAGINA IS NOT ATROPHIC. S/P TAHBSO FOR BLEEDING FIBROIDS IN . SHE IS NOT SEXUALLY ACTIVE. SHE IS A . Examination Category Sub-Category Detail Notes Category Not es INTERACTIVE ART DIRECTOR exam VAGINA: normal, no lesions EXTERNAL GENITALIA: DRY ATROPHIC VULVA W ITH SLIGHT DESUQMATION ALONG BILATERAL INTROITAL OPENING
--- OUTSIDE RECORDS SUMMARY | 2024-12-22 17:29 | XMS_ITS ---
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+ Medications Medication SIG (Take, Route, Frequency, Duration) Notes Start Date End Date Status Terconazole 3 0.8 % 1 applicatorful at bedtime Vaginal Once a day for 3 day(s) 08/01/2020 Not-Taking Lidocaine 5 % 1 application to affected area as needed Externally Three times a day as needed for 10 days 11/11/2014 Not-Taking Valtrex 1 GM 1 tablet Orally TWIC E DAILY for 10 day(s) 11/11/2014 Not-Taking Lotrisone 1-0.05 % 1 application to affected area Externally Twice a day for 14 days 11/05/2014 Not-Taki ng Yuvafem 10 MCG 1 tablet Vaginal THR ICE A WEEK for 90 days 12/03/2024 Active Terazol 3 0.8 % 1 application at [...] a day for 5 day(s) 10/04/2020 Not-Taking Estradiol Vaginal Cream 0.01% 1 Gram to the affected area VULVA Twice a week for 90 days 08/14/2024 Active Yuvafem 10 MCG INSERT 1 TABLET VAGINALLY THREE X A WEEK for 90 Active Flomax Active Multi Paco Minerals - as directed Orally Active Multivitamins 1 ORAL daily for -3 04/16/2012 Active Vitamin D 1000 UNIT 1 tablet Orally Once a day Active metroNIDAZOLE 0.75 % 1 applicatorful at bedtime Vaginal ONCE A NIGHT for 5 days 12/03/2024 Active Bioflavonoids ORAL daily for [...] Problem Status W/U Status Risk Notes Problem Constipation by outlet obstruction (86197603) 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) Active confirmed Vital Signs Height 61.5 in 12/03/2024 Weight 134 lbs 12/03/2024 BMI 24.91 kg/m2 12/03/2024 Blood pressure systolic 114 mm Hg 12/04/19 25 Blood pressure diastolic 68 mm Hg 025 Temperature 2 degrees Fahrenheit 12/03/2024 Encounters Encounter Location Date Provider Diagnosis Total [address] [place] [address] 12/03/2024 Mita Cote Encounter for gynecological examination [...] breast N60.89 and Dense breasts, unspecified R92.30 Assessments Encounter Date Diagnosis (ICD Code) Assessment Notes Treatment Notes Treatment Clinical Notes Section Notes 12/03/2024 Encounter for gynecological examination (general) (routine) without abnormal findings (ICD-10 - Z01.419) NO MORE PAP TESTS. 12/03/2024 Encounter for screening mammogram for malignant neoplasm of breast (ICD-10 - Z12.31) REGULAR MAMMOGRAMS AND SBE'S WERE RECOMMENDED. 12/03/2024 Other specified disorders of bone density [...] 3D MAMMOGRAMS WERE RECOMMENDED. Plan Of Treatment Medication Medication Name Sig Start Date Stop Date Notes Yuvafem 10 MCG 1 tablet Vaginal THR ICE A WEEK for 90 days 12/03/2024 metroNIDAZOLE 0.75 % 1 applicatorful at bedtime Vaginal ONCE A NIGHT for 5 days 12/03/2024 Treatment Notes Assessment Notes Encounter for gynecological examination (general) (routine) without abnormal findings NO MORE PAP TESTS. Encounter for screening mamm ogram for malignant neoplasm of breast REGULAR MAMMOGRAMS AND SBE'S WERE RECOMMENDED. Other specified disorders of bone density and structure, multiple sites DISCUSSED HER LAST BMD AND OSTEOPENIA AND ITS IMPACT ON HER HEALTH. ADEQUATE CALCIUM AND VIT D. WEIGHT BEARING EXERCISES. REPEAT BMD IN 2025. Outlet dysfunction constipation DISCUSSED DISCONTINUING MAGNESIUM FOLLOWED BY INABILITY TO EMPTY BOWELS WELL. RESTART MAGNESIUM SUPPLEMENTS. IF SHE CONTINUES TO HAVE THIS ISSUE, CALL BACK AND WILL REFER TO COLORECTAL SURGEONS FOR FURTHER EVALUATION. Postmenopausal atrophic vaginitis CONTIN UE YUVAFEM THRICE A WEEK. Acute vaginitis DISCUSSED FINDINGS, DX AND TX OPTIONS. DISCUSSED BV RX FOR METROGEL AND INSTRUCTIONS WERE GIVEN. RECURRENT NATURE OF THE CONDITION WAS EMPHASIZED. Other benign mammary dysplas ias of unspecified breast DISCUSSED HS OF ADH AND ITS IMPLICATIONS . Dense breasts, unspecified DISCUSSED DENSE BREASTS ON MAMMOGRAM AND ITS IMPLICATIONS. 3D MAMMOGRAMS WERE RECOMMENDED. Pending Test Test Name Order Date MAMMOGRAM, SCREENING 12/03/2024 BONE DENSITY 12/03/2024 MM Digital Mammo Screening 12/03/2024 Next Appt Details Follow Up: 1 Year, Reason: Provider Name:Mita quintero, 12/29/2024 10:50:00 AM, [address], [address], [place], [address], Provider Name:Mita quintero, 12/09/2025 10:00:00 AM, [address], [address], [place], [address], Progress Notes * TALIB SONYA RDOB: [birth year] (79 yo F)Acc No.[id number]:12/03/2024 PROGRESS NOTES Patient:?SONYA MAYERS Appointment Provider:?Miat quintero M.D. :[id number]???Age:79 Y???Sex:Female D ate:12/03/2024 Address:[address] [place] [address] [id number] Pcp:JENNIFER BUSTOS Subjective: * Chief Complaints: * ???HR MEDICARE PEAnnual FINANCIAL OPERATIONS CONSULTANT Physical 60-85+ * HPI: ???New/Follow-up Patient Consult:?S/P TAHBSO IN THE 1080'S FOR BLEEDING FROM FIBROIDS.? SHE LATER UNDERWENT ANTERIOR REPAIR WITH PLICATION, POSTEROR REPAIR WITH MESH AUGMENTATION,? ENTEROCELE REPAIR AND BILATERAL SACROSPINOUS LIGAMENT FIXATION AND CYSTORETHROSCOPY ON 11/03/[address]ELF.? ? SHE NOW C/O FEELING SHE IS UNABLE TO PUSH OUT STOOLS EFFECTIVELY.? THIS STARTED 6 MONTHS AGO SOON AFTER SHE DISCONTINUED TAKING MAGNESIUM SUPPLEMENTS.?? SHE ALSO C/O VAGINAL ODOR WITH SLIGHT IRRITATION OF A FEW WEEKS DURATION.?? SHE USES YUVAFEM FOR ATROPHIC VAGINITIS THRICE A WEEK. HER LAST MAMMOGRAM DONE IN SEP 2024 SHOWED DENSE BREASTS AND WAS NORMAL.? HER LIFETIME BREAST CA RISK IS 6.2%. HER LAST PAP TEST IN 2012 WAS NEGATIVE.? SHE HAS NO HX OF ABNORMAL PAP TESTS.?? HER LAST BMD IN 2023 SHOWED THE LOWEST T-SCORE TO BE -2.0 AT THE FEMORAL NECK.? FRAX=14%/3.5%.? NO CHANGE COMPARED TO HER BMD IN 2020. SHE HAD COLONOSCOPIES DONE IN 2013 AND 2018. 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 ???Annual:? Patient presents for annual exam, ages 60-85, postmenopausal. ?General Health Maintenance:?Current breast complaints:?no breast pain, mass, discharge, or skin changes ?Urinary problems:?patient reports no urinary health problems or bowel health problems ?Calcium intake:?takes adequate calcium via diet and supplementation ?Significant FINANCIAL OPERATIONS CONSULTANT problems:?no significant evaporator helper symptoms or problems * ROS:?general:?no?chest pain.?no?palpitations.?no?headache.?no?cough.?no?shortness of breath.?no?fever.?no?unexplained weight loss.?no?nausea/vomiting.?no?change in bowel movements.?no blood in stool.?no?genitourinary complaints.?no?skin complaints.? * Medical History:? * Customer Success Representative History:?/ Para?2/2.?Sexual activity?not currently sexually active.?Last Pap Smear:?04/23/13.?Mammogram:?10/09/24 50-75% density, 10/07/23 50-75% density, 10/04/22 50-75% density, 11/30/20 50-75% density, 04/12/20 Unilat Right, 08/20/19 50-75% density, 08/07/18 normal < 50% density, , 01/29/18 Unilat Left 6 month follow up 50-75% density, 08/01/2017 Bilateratl Mammo with additional views and Bx Lt Breast - positive. 06/28/2015 , normal, < 50% density.?LMP and menses?Hyst.? Control:?bilateral tubal ligation.?Hysterectomy:?yes.?Colonoscopy?yes,05/2019, 05/2014.?Bone Density:?10/07/23, 11/30/20, 08/14/18.? [...] in last six months. ?Verbal abuse: none. ???Drug/Alcohol:?AUDIT-C (Standard)?Did you have a drink containing alcohol in the past year??No ?Points?0 ?Interpretation?Negative * Medications:?TakingBioflavon oids ORAL daily Multivitamins 30 1 ORAL daily Vitamin D 1000 UNIT Tablet 1 tablet Orally Once a day Flomax Multi Paco Minerals - Tablet as directed Orally Yuvafem 10 MCG Tablet INSERT 1 TABLET VAGINALLY THREE X A WEEK Estradiol Vaginal Cream 0.01% Cream 1 Gram to the affected area VULVA Twice a week Taking Bioflavonoids ORAL daily Taking Multivitamins 30 1 ORAL daily Taking Vitamin D 1000 UNIT Tablet 1 tablet Orally Once a day Taking Flomax Taking Multi Paco Minerals - Tablet as directed Orally Taking Yuvafem 10 MCG Tablet INSERT 1 TABLET VAGINALLY THREE X A WEEK Taking Estradiol Vaginal Cream 0.01% Cream 1 Gram to the affected area VULVA Twice a week [id number] 0.75 % Gel 1 application at bedtime [...] Verified] Objective: * Vitals:?Ht: 61.5 in, Wt: 134 lbs, BMI:24.91Index, BP: 114/68 mm Hg, Temp: 98 F,2 F. * Examination: ???General Exam: ?CONSTITUTIONAL:?General Appearance:?alert, in no acute distress, normal, well nourished ?NECK/THYROID:?Inspection/Palpation:?normal ?Thyroid:?normal size and shape ?RESPIRATORY:?Auscultation: clear to auscultation bilaterally, Respiratory Effort: normal.?CARDIOVASCULAR:?Auscultation: regular rate and rhythm.?BREAST, Right:?Inspection/Palpation:?no discharge, no masses present, no nipple retraction, no skin changes, no skin dimpling, no tenderness, no lymphadenopathy, no axillary mass, no axillary tenderness ?BREAST, Left:?Inspection/Palpation:?no discharge, no masses present, no nipple retraction, no skin changes, no skin dimpling, no tenderness, no lymphadenopathy, no axillary mass, no axillary tenderness ?GASTROINTESTINAL:?Abdomen:?no masses, nontender, nondistended ?Liver and Spleen:?normal ?Hernias:?no hernias present, no inguinal adenopathy ?MUSCULOSKELETAL:?Inspection/Palpation:?no clubbing, cyanosis, or edema ?SKIN:?Skin:?normal ?NEURO/PSYCH:?Orientation:?time , place, person ?Mood/Affect:?normal?Genitourinary: ?EXTERNAL GENITALIA:?External Genitalia:?normal, no lesions ?VAGINA:?Vagina:?normal appearance, no cystocele, no enterocele, no rectocele SLIGHTLY ERYTHEMATOUS, +WHIFF TEST, PH>4.5 ?BLADDER:?Bladder:?no mass, nontender ?URETHRA:?Urethra:?no erythema or lesions present ?CERVIX:?Cervix:?surgically absent ?UTERUS:?Uterus:?surgically absent ?ADNEXA:?Adnexa:?surgically absent ?ANUS AND PERINEUM:?Anus/Perineum:?visually normal??? Assessment: * Assessment: 1.?Encounter for gynecologic al examination (general) (routine) without abnormal findings - Z01.419???2.?Encounter for screening mammogram for malignant neoplasm of breast - Z12.31???3.?Other specified disorders of bone density and structure, multiple sites - M85.89???4.?Outlet dysfunction constipation - K59.02???5.?Postmenopausal atrophic vaginitis - N95.2???6.?Acute vaginitis - N76.0? ?7.?Other benign mammary dysplasias of unspecified breast - N60.89???8.?Dense breasts, unspecified - R92.30??? Plan: * Treatment: 2.?Encounter for screening m ammogram for malignant neoplasm of breast?Imaging: MM Digital Mammo Screening Notes: REGULAR MAMMOGRAMS AND SBE'S WERE RECOMMENDED.?? 3.?Other specified disorders of bone density and structure, multiple sites?Imaging: BONE DENSITY Notes: DISCUSSED HER LAST BMD AND OSTEOPENIA AND ITS IMPACT ON HER HEALTH. ADEQUATE CALCIUM AND VIT D. WEIGHT BEARING EXERCISES. REPEAT BMD IN 2025.??4.?Outlet dysfunction constipation? Notes: DISCUSSED DISCONTINUING MAGNESIUM FOLLOWED BY INABILITY TO EMPTY BOWELS WELL. RESTART MAGNESIUM SUPPLEMENTS. IF SHE CONTINUES TO HAVE THIS ISSUE, CALL BACK AND WILL REFER TO COLORECTAL SURGEONS FOR FURTHER EVALUATION.??5.?Postmenopausal atrophic vaginitis? Start Yuvafem Tablet, 10 MCG, 1 tablet, Vaginal, THRICE A WEEK, 90 days, 36 Tablet, Refills 4.?? Notes: CONTINUE YUVAFEM THRICE A WEEK.??6.?Acute vaginitis? Start metroNIDAZOLE Gel, 0.75 %, 1 applicatorful at bedtime, Vaginal, ONCE A NIGHT, 5 days, 45 Gram, Refills 3.?? Notes: DISCUSSED FINDINGS, DX AND TX OPTIONS. DISCUSSED BV RX FOR METROGEL AND INSTRUCTIONS WERE GIVEN. RECURRENT NATURE OF THE CONDITION WAS EMPHASIZED.??7.?Other benign mammary dysplasias of unspecified breast? Notes: DISCUSSED HS OF ADH AND ITS IMPLICATIONS.??8.?Dense breasts, unspecified? Notes: DISCUSSED DENSE BREASTS ON MAMMOGRAM AND ITS IMPLICATIONS. 3D MAMMOGRAMS WERE RECOMMENDED.?? * Imaging:? * ?Imaging: MAMMOGRAM, SCR EENING * Procedure Codes:? * Preventive Medicine:? ??YOUR PREVENTIVE WELLNESS PLAN:?Osteoporosis prevention?Calcium, D, strength training.?Breast Cancer Screening (Mammogram):?annually.?Cervical Cancer Screening (Pap Smear):?q 3 years with HPV screen.?Colorectal Cancer Screening:?q 10 years.? * Follow Up:?1 Year * Images: Billing Information: * Visit Code:? 61802 Preventive Care Est Pt. Age 65 and over. * Procedure Codes:? * Sign off status: Completed true * Appointment Provider:?Mita Cote M.D. Date:?12/03/2024 Generated for Reese velasquez/Darshan/Yulyitting on:?12/22/2024 05:28 PM EDT History and Physical Notes * HPI (History of Present Illness) Category Sub-Category Detail Notes Category Not es New/Follow-up Patient Consult S/P MICHELLE IN THE 1080'S FOR BLEEDING FROM FIBROIDS. SHE LATER UNDERWENT ANTERIOR REPAIR WITH PLICATION, POSTEROR REPAIR WITH MESH AUGMENTATION, ENTEROCELE REPAIR AND BILATERAL SACROSPINOUS LIGAMENT FIXATION AND CYSTORETHROSCOPY ON 11/03/[address]ELF. SHE NOW C/O FEELING SHE IS UNABLE TO PUSH OUT STOOLS EFFECTIVELY. THIS STARTED 6 MONTHS AGO SOON AFTER SHE DISCONTINUED TAKING MAGNESIUM SUPPLEMENTS. SHE ALSO C/O VAGINAL ODOR WITH SLIGHT IRRITATION OF A FEW WEEKS DURATION. SHE USES YUVAFEM FOR ATROPHIC VAGINITIS THRICE A WEEK. HER LAST MAMMOGRAM DONE IN SEP 2024 SHOWED DENSE BREASTS AND WAS NORMAL. HER LIFETIME BREAST CA RISK IS 6.2%. HER LAST PAP TEST IN 2012 WAS NEGATIVE. SHE HAS NO HX OF ABNORMAL PAP TESTS. HER LAST BMD IN 2023 SHOWED THE LOWEST T-SCORE TO BE -2.0 AT THE FEMORAL NECK. FRAX=14%/3.5%. NO CHANGE COMPARED TO HER BMD IN 2020. SHE HAD COLONOSCOPIES DONE IN 2013 AND 2019. 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 Annual General Health Maintenance: Current breast complaints:: no breast pain, mass, discharge, or skin changes Urinary problems:: patient r malik no urinary health problems or bowel health problems Calcium intake:: takes adequ ate calcium via diet and supplementation Significant FINANCIAL OPERATIONS CONSULTANT problems:: n o significant evaporator helper symptoms or problems Examination Category Sub-Category Detail Notes Category Not es General Exam CONSTITUTIONAL: General Appearan ce:: alert, in no acute distress, normal, well nourished NECK/THYROID: Inspection/Palpation:: normal Thyroid:: normal size and shape RESPIRATORY: Auscultation: clear to auscultation bilaterally, Respiratory Effort: normal CARDIOVASCULAR: Auscultation: regula r rate and rhythm GASTROINTESTINAL: Abdomen:: no masses, nontender , nondistended Liver and Spleen:: normal Hernias:: no hernias present, no inguina l adenopathy MUSCULOSKELETAL: Inspection/Palpation:: no clubb ing, cyanosis, or edema SKIN: Skin:: normal NEURO/PSYCH: Orientation:: time , place, pers on Mood/Affect:: normal BREAST, Right: Inspection/Palpation :: no discharge, no masses present, no nipple retraction, no skin changes, no skin dimpling, no tenderness, no lymphadenopathy, no axillary mass, no axillary tenderness BREAST, Left: Inspection/Palpation :: no discharge, no masses present, no nipple retraction, no skin changes, no skin dimpling, no tenderness, no lymphadenopathy, no axillary mass, no axillary tenderness Genitourinary EXTERNAL GENITALIA: External Genitalia:: nor mal, no lesions VAGINA: Vagina:: normal appe arance, no cystocele, no enterocele, no rectocele SLIGHTLY ERYTHEMATOUS, +WHIFF TEST, PH>4.5 BLADDER: Bladder:: no mass, nontender URETHRA: Urethra:: no erythem a or lesions present CERVIX: Cervix:: surgically absent UTERUS: Uterus:: surgically absent ADNEXA: Adnexa:: surgically absent ANUS AND PERINEUM: Anus/Perineum:: visually norm al
== END 2024-12-22 14:57 | disposition home or self-care (01) ==
LOC: HO.HUSH 14:00
PROVIDERS: PCP Internal Medicine; Visit Provider Urology
DX: R33.9 Retention of urine, unspecified (principal); N39.0 Urinary tract infection, site not specified; Z13.9 Encounter for screening, unspecified
CPT/HCPCS: 99214; G2211

== ENCOUNTER → 2024-12-22 14:00 | Outpatient (BNVA) | payer MEDICARE, OTHER, SELFPAY | PROVIDERS: PCP Internal Medicine; Visit Provider Urology | DX: R33.9 Retention of urine, unspecified (principal); N39.0 Urinary tract infection, site not specified | CPT/HCPCS: 51798; 81003; 99212 ==